=== PATIENT | female | born 1980 | race Caucasian/White ===

== ENCOUNTER 2024-02-11 11:54 | Emergency (ER) | payer OTHER, SELFPAY ==
[2024-02-11 12:19] LABS: Bilirubin Negative (Negative); Blood, Urine Large (Negative); Clarity Cloudy (Clear); Glucose, Urine (Dipstick) 100 mg/dL (Negative); Ketone, Urine Negative (Negative); Leukocyte Moderate (Negative); Nitrite Positive (Negative); Protein, Urine (Dipstick) > or equal to 300 mg/dL (Neg-Trace); Specific Gravity, Urine 1.025 (1.005-1.030)
[2024-02-11] MEDS ORDERED: Doxycycline 100 MG CAP ONE (12:19)
[2024-02-11] MEDS ORDERED: cefTRIAXone (ROCEPHIN) 500 MG VIAL ONE (12:19)
[2024-02-11 12:20] LABS: Pregnancy Test - Urine (BHCG) Negative (Negative); Pregu Control Background? CLEAR/WHITE (CLR/WHITE); Pregu Control Bar Appear? YES (CONTROL BAR); Specific Gravity 1.025 (1.002-1.036)
[2024-02-11] MEDS ORDERED: Lidocaine 1% PF 5 ML VIAL ONE (12:20)
[2024-02-11 12:27] LABS: Bacteria/HPF 4+ HPF (None Seen); CAUTI Indications for Culture Dysuria,urgency,freq; RBC/HPF Greater than 50 HPF (0-3); WBC/HPF Greater than 50 HPF (0-3)
[2024-02-11 12:28] LABS: Urine Culture Reflex Yes Yes
== END 2024-02-11 12:43 | disposition home or self-care (01) ==
LOC: EDSEX 11:54 → BURERS 11:54
DX: N39.0 Urinary tract infection, site not specified (principal)
CPT/HCPCS: 81001; 81025; 87086; 96372; 99283; J0696